=== PATIENT | male | born 1995 | race Caucasian/White ===

== ENCOUNTER → 2021-06-27 | Outpatient (CLI) | payer OTHER ==
--- NOTE | 2021-08-06 18:37 | SLEEP ---
[address] [address] SLEEP STUDY REPORT Name: REESE NORMAN Room: [facility]#: [id number] Admission: 06/27/21 Attend Phys: Pati Blakely RN Discharge: Date of : 89 Report #: [id number] THIS REPORT FOR: cc: Daryl Shaffer MD, William MD Pervez, Adeel MD ~ DATE OF STUDY: 06/27/2021 HOME SLEEP STUDY INTERPRETATION: Total duration of the study is 533 minutes. During this time duration, we recorded multiple sleep-related respiratory events. These included 277 obstructive apneas, in addition to 39 central apneas, 9 mixed apneas and 50 hypopneas. Overall, apnea-hypopnea index is 42.2. Body position data indicates that the patient is lying on the right side throughout the sleep study. There are multiple desaturations recorded. Overall, the patient spent 67.1 minutes below an O2 saturation of 90%. Mean heart rate is 71. IMPRESSION: Severe obstructive sleep apnea with an apnea-hypopnea index of 42.2, with significant nocturnal hypoxemia. The patient spent 67.1 minutes below an O2 saturation of 90%. The patient was lying on the right side throughout the sleep study. RECOMMENDATIONS: Considering severe obstructive sleep apnea as well as significant nocturnal hypoxemia, I recommend proceeding to an in-lab sleep study for positive airway pressure titration, rather than the use of a CPAP auto titrated device. Also recommend avoiding driving or other activities requiring vigilance if drowsy. This entire sleep study was reviewed by a board certified sleep physician. <ELECTRONICALLY SIGNED> By: Max Monroy MD 08/06/21 [id number] Monroy MD /nt
== END ==
LOC: M.PUL 14:00
PROVIDERS: ATTEND Nurse Practitioner
DX: G47.33 Obstructive sleep apnea (adult) (pediatric) (principal); R09.02 Hypoxemia; R06.83 Snoring